=== PATIENT | female | born 1995 | race Caucasian/White ===

== ENCOUNTER → 2020-02-28 | Outpatient (CLI) | payer OTHER ==
[2020-02-28 16:29] LABS: ANION GAP 5 mmol/L (5-15); CHLORIDE 108 mmol/L (98-107)
[2020-02-28 16:54] LABS: % IRON SATURATION 12 % (20-55); ALANINE AMINOTRANSFERASE 32 U/L (12-78); ALKALINE PHOSPHATASE 72 U/L (45-117); BASOPHILS % (AUTO) 1 % (0-1); BILIRUBIN,TOTAL 0.3 mg/dL (0.2-1.0); CREATININE 0.93 mg/dL (0.55-1.02); EOSINOPHILS % (AUTO) 2 % (1-7); FREE T4 (FREE THYROXINE) 0.87 ng/dL (0.76-1.46); IRON LEVEL 56 mcg/dL (50-170); LYMPHOCYTES % (AUTO) 41 % (22-44); MEAN CORPUSCULAR HEMOGLOBIN 30.5 pg (27.0-34.8); MEAN CORPUSCULAR HGB CONC 33.4 g/dL (32.4-35.8); MEAN PLATELET VOLUME 8.1 fL (7.4-10.4); MONOCYTES % (AUTO) 7 % (2-9); NEUTROPHILS % (AUTO) 49 % (42-75); PLATELET COUNT 225 x10^3/uL (130-400); RED BLOOD COUNT 4.68 x10^6/uL (3.82-5.3); RED CELL DISTRIBUTION WIDTH 12.8 % (9.6-15.2); TOTAL IRON BINDING CAPACITY 473 mcg/dL (250-450); TOTAL PROTEIN 8.1 g/dL (6.4-8.2)
[2020-02-28 16:57] LABS: MD NO
== END | disposition home or self-care (01) ==
LOC: LAB 15:53
PROVIDERS: ATTEND Nurse Practitioner Family
DX: R53.83 Other fatigue (principal)
CPT/HCPCS: 36415; 80053; 82306; 82607; 82728; 83540; 83550; 84439; 84443; 84481; 85025